=== PATIENT | female | born 1940 | race Two or more races ===

== ENCOUNTER 2018-07-16 07:06 | Outpatient (CLI) | payer OTHER | END 2018-07-16 07:38 | disposition home or self-care (01) | LOC: NUCLEAR 07:06 | DX: I20.0 Unstable angina (principal); E78.2 Mixed hyperlipidemia; I11.9 Hypertensive heart disease without heart failure; I25.10 Atherosclerotic heart disease of native coronary artery without angina pectoris | CPT/HCPCS: 78452; 93017; A9500 ==